=== PATIENT | male | born 2000 | race Caucasian/White ===

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

== ENCOUNTER 2024-04-25 16:30 | Inpatient (IN) ==
[2024-04-25 17:57] LABS: ABS Eosinophils 0.1 10^3/uL (0.0-0.5); ABS Lymphocytes 1.6 10^3/uL (1.0-4.8); ABS Monocytes 0.6 10^3/uL (0.0-1.1); ABS Neutrophils 7.5 10^3/uL (1.5-7.6); Eosinophil % 0.6 %; Hematocrit 44.7 % (38-53); Hemoglobin 15.5 g/dL (13.2-16.3); Lymphocyte % 16.5 %; Mean Corpuscular Hemoglobin 30.6 pg (27-33); Mean Corpuscular Hgb Conc 34.8 g/dL (31-36); Mean Corpuscular Volume 88.1 fL (80-97); Platelet Count 234 10^3/uL (150-450); Red Blood Count 5.08 10^6/uL (4.06-5.63); Red Cell Distribution Width 13.4 % (12-17); White Blood Count 9.8 10^3/uL (3.6-10.2)
[2024-04-25 17:58] LABS: Urine Appearance Clear; Urine Bilirubin Negative (Negative); Urine Blood Negative (Negative); Urine Color Yellow; Urine Glucose Negative (Negative); Urine Ketones Negative (Negative); Urine Nitrite Negative (Negative); Urine Protein Trace (Negative); Urine Specific Gravity 1.027 (1.002-1.030); Urine Urobilinogen Negative (Negative)
[2024-04-25 18:17] LABS: Urine Benzodiazepine Screen None Detected (None Detect); Urine Cannabinoids Screen Presumptive Positive (None Detect); Urine Opiates Screen None Detected (None Detect)
[2024-04-25 18:33] LABS: ALT 22 U/L (7-52); AST 23 U/L (13-39); Acetaminophen < 15 mcg/mL; Albumin 5.2 g/dL (3.5-5.7); Albumin/Globulin Ratio 1.9 (1-3); Alcohol, S < 13 mg/dL (<13); Alkaline Phosphatase 49 U/L (35-149); Anion Gap 8 mmol/L (2-16); Blood Urea Nitrogen 11 mg/dL (6-24); CO2 Carbon Dioxide 28 mmol/L (22-32); Calcium 10.2 mg/dL (8.6-10.3); Chloride 101 mmol/L (101-111); Creatinine, Serum 1.04 mg/dL (0.67-1.17); Globulin 2.8 g/dL (2-4); Glucose 98 mg/dL (70-100); Potassium 3.9 mmol/L (3.5-5.0); Salicylate < 2.50 mg/dL (<30); Sodium 137 mmol/L (135-145); Total Bilirubin 0.9 mg/dL (0.2-1.0); eGFR CKD-EPI 104.1 (>60)
[2024-04-25 18:39] LABS: HCG Pregnancy < 0.60 mIU/mL
[2024-04-25 18:47] LABS: TSH Ultra Thyroid Stim Horm 2.11 mcIU/mL (0.34-5.60)
[2024-04-26] MEDS ORDERED: Al Hydrox/Mg Hydrox/Simet LIQ 30 ML UDC PO PRN (00:18)
[2024-04-26 09:21] LABS: HDL Cholesterol 62.7 mg/dL
[2024-04-26 09:36] VITALS: BP 128/82
[2024-04-26] MEDS: Vitamin THERAPEUTIC TAB PO SCH (11:35)
== END 2024-04-26 15:45 | disposition home or self-care (01) | DRG 755 ==
LOC: ED 16:30 → EDHOLD 23:11 → BSU 23:21
PROVIDERS: ADMIT Psychiatry & Neurology Psychiatry; ATTEND Psychiatry & Neurology Psychiatry